=== PATIENT | male | born 1955 | race Caucasian/White ===

== ENCOUNTER 2024-09-26 15:11 | Observation (INO) | payer OTHER ==
[~2024-09-26] VITALS: Ht 170.2 cm; Wt 89.4 kg
--- NOTE | ~2024-09-26 | HP ---
[facility] [address], [place] [address] Draft ADMISSION DATE: 09/26/2024 REASON FOR ADMISSION: Incarcerated umbilical hernia (omentum). HISTORY OF PRESENT ILLNESS: This 69-year-old white man is incarcerated at the [facility] locally and has had an umbilical hernia for over a year and a half that has gotten significantly worse in the past month and is now quite painful. He had some constipation and has been on a stool softener, now having no particular constipation. Indeed, he has liquid stools. He had significant increase in pain in the past day or so and now an umbilical hernia that is not completely reducible. He considers a pain 8/10. He thinks it has doubled over the last 1.5 months. He presented to emergency room upon transfer by [facility] personnel, evaluated thoroughly by Dr. Cantu including clinical examination as well as CT scan of the abdomen and pelvis. The CT scan did show a 5 cm amount of probable omentum within the subcutaneous space in the fascial defect smaller than that. PAST MEDICAL HISTORY: Notable for, 1. History of cholecystectomy. 2. Hernia repair in the past. 3. Gastroesophageal reflux. 4. Hypertension. 5. Type 2 diabetes mellitus. PAST SURGICAL HISTORY: Includes, 1. Face and jaw surgery. 2. Right knee and right hand operation. SOCIAL HISTORY: He does not use alcohol or drugs now that he is incarcerated. REVIEW OF SYSTEMS: He denies any shortness of breath or chest pain. He has had no dysphagia or dysuria. Denies any hematemesis or blood per rectum. PHYSICAL EXAMINATION: GENERAL: Elderly white man, who looks to be in mild discomfort only. PATIENT NAME: WEI DEWITT HISTORY AND PHYSICAL DATE OF : 53 REPORT #: [id number] PHYSICIAN: NHUNG CHERY MD PCP: [facility]CTION[facility] REPORT IS CONFIDENTIAL AND NOT TO BE RELEASED WITHOUT AUTHORIZATION [facility] [address], [place] [address] Draft HEENT: Mucous membranes are slightly dry. An IV is in the arm, but no IV fluids running currently. CHEST: Clear. HEART: Regular without murmur. ABDOMEN: Minimally obese. There is a prevascular type hernia at the umbilicus. Manipulations to reduce the hernia are only partially successful. EXTREMITIES: Show no clubbing, cyanosis, or edema. LABORATORY STUDIES: Show a white count of 6.13, hematocrit 39.9. Chem profile is essentially normal. Creatinine 1.29. Hemoglobin A1c 6.3. Urinalysis shows small amount of ketones, otherwise normal. Review of the CT scan confirms finding of hernia as previously described. There is mild inflammatory stranding within the umbilical hernia sac. There is no sign of bowel within the hernia. ASSESSMENT: The patient has an incarcerated umbilical hernia with a considerable amount of omental fat. He does have tenderness to this, but no sign of septic symptoms or sign of bowel obstruction. No hollow viscus within the hernia. The hernia has been present for over a year and a half and only worsening recently. I have recommended admission to the hospital, IV fluid resuscitation, and plan for operative intervention likely tomorrow given the logistics of his situation right now. The risk of bleeding, infection, recurrence and so forth were reviewed as well as possible need for implantation of mesh. If his symptoms should worsen or he should have signs suggestive of actual bowel involvement, we will do the operation tonight as needed. He understands this and agrees. MD AUSTIN James/MADISONL /[id number] cc: Dr. Cantu PATIENT NAME: WEI DEWITT HISTORY AND PHYSICAL DATE OF : 53 REPORT #: [id number] PHYSICIAN: NHUNG CHERY MD PCP: [facility] REPORT IS CONFIDENTIAL AND NOT TO BE RELEASED WITHOUT AUTHORIZATION [facility] [address], [place] [address] Draft Colleen Nurse Practitioner [facility] Copies: ~ PATIENT NAME: WEI DEWITT HISTORY AND PHYSICAL DATE OF : 53 REPORT #: [id number] PHYSICIAN: NHUNG CHERY MD PCP: [facility] REPORT IS CONFIDENTIAL AND NOT TO BE RELEASED WITHOUT AUTHORIZATION
--- NOTE | ~2024-09-26 | OR ---
[facility] [address], [place] [address] Draft DATE OF OPERATION: 09/27/2024 SURGEON: Nhung Chery MD PREOPERATIVE DIAGNOSIS: Incarcerated umbilical hernia (omentum). POSTOPERATIVE DIAGNOSIS: Incarcerated umbilical hernia (omentum) defect 4.2 cm. PROCEDURE: Repair of incarcerated umbilical hernia with reduction of herniated omentum, excision of hernia sac and repair of defect (4.2 cm with implantation of Prolene mesh in the properitoneal space and fascial reapproximation). ANESTHESIA: General endotracheal, David Rodríguez, MOLD FILLER AND DRAINER and local 10 mL of 0.25% Marcaine with epinephrine. INDICATION: This 69-year-old white man is a prisoner at the [facility]. He presented yesterday evening with complaints of progressive abdominal pain and nonreducible umbilical hernia. The herniated viscus appears to be omentum based on CT scan. There was at least 4.5 cm of the herniated fat. The defect was reported at 1 cm but operative finding showed it to be far larger than that, nearly 4.2 cm. On that basis. Implantation of Prolene mesh in an underlay technique was undertaken with peritoneum as a barrier to the intraabdominal viscera with transverse reapproximation of the fascia. DESCRIPTION OF PROCEDURE: The patient was brought to the operating room, given a general endotracheal anesthetic. Preoperative antibiotic Ancef was given. Sequential compression device stockings were used. The abdomen was prepared with a chlorhexidine solution and draped sterilely after shaving rather clipping. With various manipulations, the hernia still could not be reduced fully. A curvilinear incision was made to the left of the umbilicus in the umbilical fold. Dissection was carried through the dermis with electrocautery. Using blunt electrocautery dissection, the herniated viscus was freed from the surrounding soft tissue. Its dense attachment to the overlying umbilical skin was freed and ultimately the edge of the hernia defect was incised with electrocautery and the hernia sac incised. This delivered incarcerated omentum which was not necrotic. The omentum was replaced into the abdominal cavity and the hernia sac excised and passed for PATIENT NAME: WEI DEWITT OPERATIVE REPORT DATE OF : 53 REPORT #: [id number] PHYSICIAN: NHUNG CHERY MD PCP: [facility]CTION[facility] REPORT IS CONFIDENTIAL AND NOT TO BE RELEASED WITHOUT AUTHORIZATION [facility] [address], [place] [address] Draft Pathology. The edges of the peritoneum were grasped and a layer dissected free circumferentially around the fascial defect, which was measured at 4.2 cm. The hernia sac having been excised left only the peritoneal edges which were then reapproximated with running 2-0 Vicryl suture providing a barrier of peritoneum between the overlying fascia and the intraabdominal viscera. The small segment of Prolene mesh was cut to an elliptical configuration and secured in the properitoneal space with interrupted 0 Prolene sutures. The fascia was then reapproximated with interrupted 0 Prolene sutures in a horizontal mattress configuration. A 10 mL of 0.25% Marcaine with epinephrine injected locally. The layers were closed with interrupted 2-0 Vicryl and running subcuticular 3-0 Vicryl for the skin. Steri-Strips were applied as was an Acticoat dressing. The patient was ultimately extubated and transferred to the recovery room in good condition having suffered no complication. Sponge, needle, and instrument counts were as correct x3. MD AUSTIN James/MADISONL /[id number] cc: RIO [facility] Copies: ~ PATIENT NAME: WEI DEWITT OPERATIVE REPORT DATE OF : 53 REPORT #: [id number] PHYSICIAN: NHUNG CHERY MD PCP: [facility] REPORT IS CONFIDENTIAL AND NOT TO BE RELEASED WITHOUT AUTHORIZATION
[2024-09-26] MEDS ORDERED: SODIUM CHLORIDE 0.9% 1,000 ML IV ONE (17:00)
[2024-09-26] MEDS ORDERED: KETOROLAC TROMETHAMINE 15 MG/ML VIAL IV ONE (17:00)
[2024-09-26 17:18] LABS: BASOPHILS 0.3 % (0.2-1.2); EOSINOPHILS 1.3 % (0.8-7.0); LYMPHOCYTES 31.6 % (21.8-53.1); MCH 27.8 PG (25.7-32.2); MCHC 33.1 g/dL (32.3-36.5); MCV 84.2 fL (79.0-92.2); MONOCYTES 8.2 % (5.3-12.2); NEUTROPHILS 58.3 % (34.0-67.9); RBC 4.74 M/uL (4.63-6.08)
[2024-09-26 17:32] LABS: ALT (SGPT) 21.0 U/L (14-59); AST (SGOT) 14.0 U/L (15-37); GLOMERULAR FILTRATION RATE,EST 60.0 mL/min (>60); PROTEIN, TOTAL 7.7 g/dL (6.4-8.2); UREA NITROGEN 24.0 mg/dL (7-18)
[2024-09-26 17:43] LABS: BLOOD/HGB, URINE NEGATIVE (Negative); KETONE, URINE SMALL (Negative); LEUK ESTERASE, URINE NEGATIVE (negative); NITRITE, URINE NEGATIVE (negative)
[2024-09-26 17:50] LABS: BACTERIA, URINE NONE SEEN /hpf (negative); CASTS, URINE NONE SEEN \\lpf; CRYSTALS, URINE CALCIUM OXALATE 2+ (0-1+); EPITHELIAL CELLS, URINE 0 /lpf (0-1+); REFLEX CULTURE, URINE No (No)
[2024-09-26] MEDS ORDERED: LACTATED RINGER'S 1,000 ML IV SCH ×2 (19:00)
[2024-09-26] MEDS ORDERED: CEFAZOLIN SODIUM 2 GM/20 ML SYR IV SCH (19:00)
[2024-09-26] MEDS ORDERED: FAMOTIDINE 20 MG/ 2 ML VIAL IV ONE (19:00)
[2024-09-26] MEDS ORDERED: MORPHINE SULFATE 10 MG/ML VIAL IV PRN (19:00)
[2024-09-26] MEDS ORDERED: LACTATED RINGER'S 1,000 ML IV ONE (19:00)
[2024-09-26] MEDS ORDERED: KETOROLAC TROMETHAMINE 30 MG/ML VIAL IV PRN (19:00)
--- NOTE | 2024-09-26 20:35 | NUR ---
2034 - admitted to room 114 via stretcher from ER. Alert and oriented, Pt wearing metal 4 point restraint as per [facility] protocol pleasant and cooperative, On room air, abd soft, tender, slight distention. IVF bolus from ER infusing w/o problems. Pt acompanied by 2 [facility] officers. aware of NPO satus after midnight. IV bolus from ER infusing
[2024-09-26 20:43] VITALS: BP 137/68
--- NOTE | 2024-09-26 21:16 | NUR ---
MEDICATED WITH MORPHINE 4MG IV PER C/O 09/19 ABD PAIN. SITTING UP IN BED. ROOM AIR. 4 POINT METAL SHACKLES PER [facility] PROTOCOL, ACOMPANIED BY 3 [facility] GUARDS.
--- NOTE | 2024-09-26 21:47 | NUR ---
PT UP TO BRP, VOIDED, USED URINAL, ACOMPANIED BY 2 [facility] OFFICERS. CBG PER NURSING JUDGEMENT COMPLETED 112. PT IS A DIABETIC
[2024-09-27] VITALS (9 sets, daily range): BP systolic 136–152; BP diastolic 67–90
--- NOTE | 2024-09-27 00:51 | NUR ---
RECEIVED REPORT FROM GILMAR MCCLELLAND. ASSESSMENT, REMOVED FLUIDS FROM BEDSIDE. GIVEN TORADOL FOR 7/10 ABDOMINAL PAIN. NO OTHER NEEDS PRESENTLY. ACCOMPANYING GUARDS IN ROOM. NO OTHER NEEDS, CALL LIGHT INREACH
--- NOTE | 2024-09-27 01:18 | NUR ---
PT ALERT IN BED. REPORTS PAIN IS UNCHANGED, THOUGH DECLINES FURTHER INTERVENTIONS, SAYING HE WILL CALL IF PAIN INCREASES. NO OTHER NEEDS, ACCOMPANYING SECURITY AT BEDSIDE. CALL LIGHT IN REACH
--- NOTE | 2024-09-27 03:04 | NUR ---
PT ALERT IN BED, DENIES NEEDS PRESENTLY. CALL LIGHT IN REACH, ACCOMPANYING GUARDS IN ROOM
--- NOTE | 2024-09-27 04:15 | NUR ---
Q6 BLOOD SUGAR WAS 106. REPORTS SIGNIFICANT PAIN, THOUGH DECLINES OFFER FOR PAIN MEDICATIONS, STATES "IT'S OKAY, I WILL WAIT UNTIL THE MORNING." NO TOHER NEEDS, CALL LIGHT IN REACH. ACCOMPANYING GUARDS IN ROOM.
[2024-09-27] MEDS ORDERED: CEFAZOLIN SODIUM 2 GM/20 ML SYR IV SCH (07:00)
[2024-09-27] MEDS ORDERED: IBLOOD GLUCOSE TEST STRIP 1 EA TEST VI SCH (08:00)
--- NOTE | 2024-09-27 08:39 | NUR ---
Patient awake, alert and oriented x3, no acute distress. Patient sitting up in bed watching tv. Patient reports abdominal pain is tolerable, no nausea. Two notable correctional officers at bedside. IV patent, fluids infusing per order. Encourged patient to call if he has needs.
--- NOTE | 2024-09-27 09:13 | NUR ---
CALLED GILMAR ZEPEDA TO DISCUSS IF CHEST XRAY WAS NEEDED. KATELYN STATED XRAY WAS NOT NEEDED.
--- NOTE | 2024-09-27 09:19 | NUR ---
PATIENT DOES NOT USE OXYGEN OR A CPAP.
--- NOTE | 2024-09-27 09:23 | NUR ---
Admin toradol 30mg iv for reports of 7/10 abdominal pain. Patient continues to deny nausea. Abdomen is soft, LUQ is tender to touch per pt report.
--- NOTE | 2024-09-27 09:32 | NUR ---
PT RESTING IN BED, SITTING UP, AWAKE AND ALERT. TWO OFFICERS IN ROOM AND SAFETY PROCEEDURES IN PLACE AT ALL TIMES. PT ON NPO AWAITING SURGERY. CALL LIGHT WITHIN REACH.
[2024-09-27] MEDS ORDERED: LIPITOR20 MG PO ×2 (10:15)
[2024-09-27] MEDS ORDERED: NORVASC10 MG PO ×2 (10:15)
[2024-09-27] MEDS ORDERED: AVAPRO150 MG PO ×2 (10:16)
[2024-09-27] MEDS ORDERED: VOLTAREN ARTHRI20 GM TOP ×2 (10:16)
[2024-09-27] MEDS ORDERED: METFORMIN HCL500 M1 PO ×2 (10:17)
[2024-09-27] MEDS ORDERED: OMEPRAZOLE20 MG PO ×2 (10:17)
[2024-09-27] MEDS ORDERED: ACTOS30 MG PO ×2 (10:17)
[2024-09-27] MEDS ORDERED: VITAMIN D325 MCG PO ×2 (10:18)
[2024-09-27] MEDS ORDERED: MIRALAX119 GM PO ×2 (10:19)
--- NOTE | 2024-09-27 10:20 | NUR ---
MED REC COMPLETE
--- NOTE | 2024-09-27 11:01 | NUR ---
THE PRE-SURGICAL WIPE DOWN WAS COMPLETED. BED LINENS CHANGED. THE TWO OFFICERS IN THE ROOM ADJUSTED THE PT'S SECURITY RESTRAINTS DUE TO TIGHTNESS. CALL LIGHT WITHIN REACH FOR PT AND TWO OFFICERS IN ROOM FOLLOWING PROCEEDURES FOR SAFETY. PT READY FOR SURGERY, NURSE GURJIT NOTIFIED THIS WAS COMPLETED.
--- NOTE | 2024-09-27 11:27 | NUR ---
VISITED DURING SPIRITUAL CARE ROUNDS. PT IN OVERALL GOOD SPIRITS WITH GUARDS IN ROOM. NO IMMEDIATE NEEDS. VACCINE CUSTOMER REPRESENTATIVE PROVIDED SUPPORTIVE PRESENCE, HOSPITALITY, PRAYER, FACILITATED INTERACTION WITH THERAPY ANIMAL. PT EXPRESSED GRATITUDE.
--- NOTE | 2024-09-27 12:33 | NUR ---
Patient left the medical floor for surgery.
[2024-09-27] MEDS ORDERED: fentaNYL citrate 100 MCG/2 ML VIAL ONE (12:51)
[2024-09-27] MEDS ORDERED: DEXAMETHASONE SOD PHOS 4 MG/ML VIAL ONE (12:52)
[2024-09-27] MEDS ORDERED: ROCURONIUM BROMIDE 50 MG/5 ML SYR ONE (12:52)
[2024-09-27] MEDS ORDERED: ACETAMINOPHEN 1,000 MG/100 ML VIAL ONE (12:52)
[2024-09-27] MEDS ORDERED: LIDOCAINE HCL 2% 5 ML SDV ONE ×2 (12:52→12:53)
[2024-09-27] MEDS ORDERED: MAGNESIUM SULFATE 1 GM/2 ML VIAL ONE (12:53)
[2024-09-27] MEDS ORDERED: KETOROLAC TROMETHAMINE 30 MG/ML VIAL IV PRN (13:45)
[2024-09-27] MEDS ORDERED: NALOXONE HCL 0.4 MG SYR IV PRN (13:45)
[2024-09-27] MEDS ORDERED: fentaNYL citrate 50 MCG/ML SDV IV PRN (13:45)
[2024-09-27] MEDS ORDERED: HYDROmorphone HCL 1 MG/ML SYR IV PRN (13:45)
[2024-09-27] MEDS ORDERED: IBLOOD GLUCOSE TEST STRIP 1 EA TEST VI PRN (13:45)
[2024-09-27] MEDS ORDERED: SUGAMMADEX SODIUM 200 MG/2 ML ML ONE (14:15)
[2024-09-27] MEDS ORDERED: MOTRIN IB200 MG PO ×2 (14:41)
[2024-09-27] MEDS ORDERED: TYLENOL EXTRA500 MG PO ×2 (14:42)
[2024-09-27] MEDS ORDERED: HYDROCODON-ACE1 EA11 PO ×2 (14:42)
[2024-09-27] MEDS ORDERED: HYDROCODONE/ACETA 5/325 TAB PO PRN (15:15)
[2024-09-27] MEDS ORDERED: IBUPROFEN 600 MG TAB PO PRN (15:15)
[2024-09-27] MEDS ORDERED: ACETAMINOPHEN 500 MG TAB PO PRN (15:15)
--- NOTE | 2024-09-27 15:24 | NUR ---
Patient back to the medical floor. Patient is awake, alert to self and place. Small surgical dressing to mid abdomen is cdi. Patient's vital signs are stable, sp02 93% on 3L oxygen, respirations non labored. Two correctional officers at bedside. Bed alarm intact.
--- NOTE | 2024-09-27 15:55 | NUR ---
09/27/24 1555 KingsleyEllen Sravani 1428- PT ARRIVES TO PACU, COUGHING AND DROWSY. PT HAS O2 AT 10 L PER MASK, ABD INCISION SPLINTED BY RN. LR INFUSING TO RAC IV. 2 [facility] OFFICERS AT BEDSIDE, ANKLE RESTRAINTS REPLACED. DRESSING CDI. PT IS VERY CONFUSED AT THIS TIME. REORIENTED MULTIPLE TIMES, ALL MONITORS IN PLACE. CBG 139 1436- O2 TURNED DOWN TO 6L PER MASK AT THIS TIME. PT ASKING WHERE HE IS, WHAT HAPPENED, IF HE DID SOMETHING WRONG. PT REORIENTED BY STAFF AND [facility] OFFICERS. PT ASKING WHY IS BELLY HURTS. SURGERY EXPLAINED. PT REPORTS IT HURTS "PRETTY BAD". WILL MEDICATE PER ORDERS. PT PLACED TEETH BACK IN MOUTH. 1445- O2 TURNED OFF AT THIS TIME, PT IS STARTING TO REMEMBER WHERE HE IS AND WHY. CONTINUES TO COMPLAIN OF PAIN. 1454- PT SATS DROP INTO THE 80S, 85-88%, PT ABLE TO FOLLOW INSTRUCTION TO DEEP BREATH, SATS UP TO 90 BUT THEN BACK DOWN. O2 PLACED AT 3L PER NC. 1500- PT REPORTS PAIN DOWN TO 4/10 TOLERABLE. AGREEABLE TO EATING AND TAKING A PAIN PILL. PLAN OF CARE EXPLAINED, PT IS RECEPTIVE. 1 LITER LR COMPLETE, IV SALINE LOCKED AT THIS TIME. 1510- PT TAKEN BACK TO MED/SURG ROOM 114 WITH [facility] OFFICERS X 2, PT IS AWAKE AND IS MORE CLEAR IN THOUGHTS. PT REMEMBERS WHERE HE IS AND WHY. VITALS OBTAINED, CONTINOUS PULSE OX PLACED, PT REMAINS ON 3L PER NC. BED LOWEST POSITION AND PLUGGED IN. DRESSING ASSESSED WITH RICK SCHAFER AT BEDSIDE, REPORT AT BEDSIDE, CARE OF PT TURNED OVER AT THIS TIME. SALINE LOCK TO [facility] IN PLACE.
--- NOTE | 2024-09-27 16:12 | NUR ---
PT HAS RETURNED FROM SURGERY, GOT HIM A REQUESTED SANDWICH, FOLLOWING A SNACK WHICH HE KEPT DOWN AND REPORTED NO NAUSEA. GOT PT AN ICE PACK FOR HIS STOMACH, WOUND SITE. PT HAS FRESH ICE WATER AND HIS NURSE JUST MEDICATED HIM FOR THE PAIN THAT THIS SHIPFITTER HELPER REPORTED TO THE NURSE. THERE ARE TWO OFFICERS IN THE ROOM AND SAFETY PROCEEDURES ARE IN PLACE AND BEING USED AT ALL TIMES. CALL LIGHT IS WITHIN REACH AND THE PT REPORTED NEEDING NOTHING MORE AT THIS TIME.
--- NOTE | 2024-09-27 16:15 | NUR ---
Admin two tabs norco 5/325mg po for reports of 8/10 abd pain.
--- NOTE | 2024-09-27 16:16 | NUR ---
PT RETURNED FROM SURGERY AND HAD A VANILLA PUDDING WITHOUT EXPERIENCING NAUSEA. THE PT THEN HAD A FULL SANDWICH AND SOME ICE WATER, ALSO REPORTING NO NAUSEA AT THIS TIME.
[2024-09-27] MEDS ORDERED: SEVOFLURANE 250 ML BTL INH ONE (16:25)
--- NOTE | 2024-09-27 16:44 | NUR ---
PT RESTING IN BED, REPORTED GETTING SOME RELIEF FROM THE PAIN MEDICATION HE RECEIVED FROM HIS NURSE EARLIER. PT HAD TAKEN THE ICE PACK OFF OF HIS STOMACH, WOUND SITE, AND WAS STILL HOLDING THE BLANKET ON HIS STOMACH. PHARMACIST CAME IN TO EXPLAIN MEDICATIONS UPON RELEASE FROM THE HOSPITAL. TWO OFFICERS IN THE ROOM, ALSO LISTENING TO EDUCATION ON MEDICATIONS. CALL LIGHT WITHIN REACH. SAFETY PROCEEDURES IN PLACE. PT REPORTED NEEDING NOTHING ELSE AT THIS TIME.
--- NOTE | 2024-09-27 17:21 | NUR ---
Dr. Orellana updated regarding pt's recovery status. Patient's pain management is tolerable, no nausea. Patient has been out of bed to void. TORB from Reyna Saldivar that patient is ok to discharge back to correctional facility.
--- NOTE | 2024-09-27 17:45 | NUR ---
Report called to GILMAR Lambert at [facility], all questions answered at this time.
--- NOTE | 2024-09-27 17:48 | NUR ---
Admin morphine 4mg iv at this time for 6/10 abdominal pain.
--- NOTE | 2024-09-27 17:53 | NUR ---
Patient reports he is doing well, no acute distress. Vitals are stable, 96% spo02 on room air, respirations non labored. Patient tolerated dinner well, no nausea. Surgical site to abdomen is CDI. Splinting education provided to patient, he reports his understanding and is able to demonstrate properly. Patient contines to have x4 retraints in place, two correctional officers at bedside.
--- NOTE | 2024-09-27 18:45 | NUR ---
Received call from reported [facility] RN doing patient's intake at their facility. Per her report, she is concerned regarding "blood pooling" under and around surgical site. [facility] RN asking if we would accept patient back to the medical floor-Discussed with this RN that I would direct the call to supervisor keymodule assembly for further guidance regarding readmit, and or information/questions.
--- NOTE | 2024-09-29 07:59 | EKG ---
[facility] [address] [facility] [place], [place] [address] Signed Normal sinus rhythm Normal ECG No previous ECGs available Confirmed by Mark Madrigal MD ([id number]) on 09/29/2024 7:59:18 AM Electronically Signed By: MARK MADRIGAL MD 09/29/24 0759 PATIENT NAME: WEI DEWITT Electrocardiogram DATE OF : 53 PHYSICIAN: MARK MADRIGAL MD REPORT #: [id number] REPORT IS CONFIDENTIAL AND NOT TO BE RELEASED WITHOUT AUTHORIZATION
--- NOTE | 2024-10-01 12:15 | PATH ---
[facility] [address], [place] [address] Signed SPECIMEN(S): A HERNIA SAC SPECIMEN SOURCE: A. HERNIA SAC CLINICAL HISTORY: Incarcerated umbilical hernia FINAL PATHOLOGIC DIAGNOSIS: Hernia sac: - Benign fibromembranous and adipose tissue consistent with clinical hernia sac. JVR:rani MICROSCOPIC EXAMINATION: Histologic sections of all submitted blocks are examined by light microscopy. These findings, together with the gross examination, support the pathologic diagnosis. GROSS DESCRIPTION: The specimen, labeled and designated "Frees, hernia sac," is received in formalin and consists of a 4.9 x 4.1 x 0.9 cm portion of fibromembranous and fibroadipose tissue with a smooth marte surface. No signs of hemorrhage or discrete mass. Tin Worker sections are submitted in (A1). AB (under the direct supervision of a pathologist) The Gross Description was prepared using a voice recognition system. The report was reviewed for accuracy; however, sound-alike word errors, addition and/or deletions may occur. If there is any question about this report, please contact Client Services. PERFORMING LABORATORY: Technical component was performed by [employer] [employer], [address] [place] [id number] (CLIA# [id number]). Professional interpretation was performed by [facility], [address] [place] [phone] (CLIA#: [id number]). Diagnostician: Everette Ji MD Pathologist Electronically Signed 10/01/2024 PATIENT NAME: WEI DEWITT PATHOLOGY DATE OF : 53 REPORT #: [id number] PHYSICIAN: KATYA PATHOLOGY PCP: [facility] REPORT IS CONFIDENTIAL AND NOT TO BE RELEASED WITHOUT AUTHORIZATION [address] [address] Signed Copies: ~ PATIENT NAME: WEI DEWITT PATHOLOGY DATE OF : 53 REPORT #: [id number] PHYSICIAN: KATYA PATHOLOGY PCP: [facility] REPORT IS CONFIDENTIAL AND NOT TO BE RELEASED WITHOUT AUTHORIZATION
== END 2024-09-27 17:55 | disposition home or self-care (01) ==
LOC: ED 15:11 → MS 19:29
PROVIDERS: Emergency Medicine; ADMIT Surgery; ATTEND Surgery
PROC: 0WUF0JZ Supplement Abdominal Wall with Synthetic Substitute, Open Approach (ICD-10-PCS; principal; 2024-09-26)
DX: K42.0 Umbilical hernia with obstruction, without gangrene (principal); K21.9 Gastro-esophageal reflux disease without esophagitis; I10 Essential (primary) hypertension; E11.9 Type 2 diabetes mellitus without complications; Z90.49 Acquired absence of other specified parts of digestive tract
CPT/HCPCS: 00750; 36415; 74177; 80053; 81001; 83036; 83690; 85025; 93005; 93010; 96374; 96375; 96376; 99285-25; C1781; G0378; J0131; J0690; J1100; J1885; J2003; J2270; J2405; J2704; J3010; J3475; J3490; J7030; J7121; Q9967

== ENCOUNTER 2024-09-27 19:10 | Emergency (ER) | payer OTHER ==
[~2024-09-27] VITALS: Ht 170.2 cm; Wt 89.4 kg
[~2024-09-27 19:10] MED LIST: ACTOS30 MG PO; AVAPRO150 MG PO; HYDROCODON-ACE1 EA11 PO; LIPITOR20 MG PO; METFORMIN HCL500 M1 PO; MIRALAX119 GM PO; MOTRIN IB200 MG PO; NORVASC10 MG PO; OMEPRAZOLE20 MG PO; TYLENOL EXTRA500 MG PO; VITAMIN D325 MCG PO; VOLTAREN ARTHRI20 GM TOP
--- OUTSIDE RECORDS SUMMARY | 2024-09-27 19:17 | XMS ---
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 Jovanny has no Care Guidelines for this patient. [facility] MO[facility] NOTE: Visits indicate total known visits. ED/C VISIT TRACKING (12 MO.) 09/27/2024 19:11 [facility] [place] TYPE: Emergency COMPLAINT: - POST OP ISSUES 09/26/2024 15:13 [facility] TYPE: Emergency COMPLAINT: - HERNIA INPATIENT VISIT TRACKING (12 MO.) 09/26/2024 19:29 [facility] TYPE: Observation COMPLAINT: - INCARCERATED SYMPTOMATIC UMBILICAL HERNIA W OMENTU https://Done In :[email or web address]
[2024-09-27 20:10] VITALS: BP 158/91
== END 2024-09-27 20:15 | disposition home or self-care (01) ==
LOC: ED 19:10
DX: K91.841 Postprocedural hemorrhage of a digestive system organ or structure following other procedure (principal); E11.9 Type 2 diabetes mellitus without complications; K21.9 Gastro-esophageal reflux disease without esophagitis; I10 Essential (primary) hypertension; Z79.899 Other long term (current) drug therapy; Z79.84 Long term (current) use of oral hypoglycemic drugs
CPT/HCPCS: 99283